=== PATIENT | female | born 1950 | race Caucasian/White ===

== ENCOUNTER → 2016-06-04 | Outpatient (CLI) | payer MEDICARE ==
[~2016-06-04] MED LIST: ALTACE2.5 MG PO
== END ==
LOC: CT 03-12 14:30
DX: Z87.891 Personal history of nicotine dependence (principal)
CPT/HCPCS: G0297

== ENCOUNTER 2020-08-21 22:27 | Emergency (ER) | payer MEDICARE, OTHER ==
[~2020-08-21 22:27] MED LIST changes: +ALBUTEROL1.25 MG/3 INH; +ALLERGY RELIEF25 M1 PO; +AMIODARONE HCL200 MG PO; +AMLODIPINE BESYL5 MG PO; +ASPIRIN CHEWABL81 MG PO; +BREO ELLIPTA 11 EACH INH; +COMBIVENT RESPIM4 GM INH; +CYCLOBENZAPRINE10 MG PO; +EFFEXOR XR75 MG PO; +ELIQUIS 5 MG TAB5 MG PO; +FERROUS SULFAT325 MG PO; +FUROSEMIDE20 MG PO; +GLUCOPHAGE 500500 MG PO; +IMDUR ER TAB 3030 MG PO; +INCRUSE ELLI62.5 MCG INH; +IPRAT-ALBUT 0.5-3 ML INH; +LASIX40 MG PO; +LIPITOR40 MG PO; +LISINOPRIL5 MG PO; +LOPRESSOR 25 MG25 MG PO; +LOPRESSOR 50 MG50 MG PO; +MEDROL4 MG PO; +MELOXICAM7.5 MG PO; +NORVASC 5 MG TAB5 MG PO; +NYSTOP60 GM TOP; +PROTONIX40 MG PO; +ROPINIROLE HCL1 MG PO; +SIMVASTATIN20 MG PO; +SYMBICORT 80-10.2 GM INH; +VENLAFAXINE HCL75 MG PO; +VENTOLIN HFA 66.7 GM INH; +VIBRAMYCIN 100100 MG PO; +XANAX0.25 MG PO; +ZOCOR20 MG PO
[2020-08-22 00:25] LABS: RED BLOOD COUNT 2.33 M/UL (4.00-5.10); WHITE BLOOD COUNT 8.6 K/UL (4.5-11.0)
[2020-08-22 00:26] LABS: HEMOGLOBIN 6.9 gm/dl (12.3-15.3)
[2020-08-22 00:45] LABS: BUN/CREATININE RATIO 24 (0-10)
[2020-08-22] MEDS ORDERED: PREDNISONE50 MG PO (06:16)
[2020-08-22] MEDS ORDERED: OMNICEF 300 MG300 MG PO (06:16)
[2020-08-22] MEDS ORDERED: VIBRAMYCIN100 MG PO (06:16)
[2020-09-19] MEDS ORDERED: FUROSEMIDE40 MG PO (07:55)
[2020-09-19] MEDS ORDERED: SYMBICORT 16010.2 GM INH (08:00)
[2020-09-19] MEDS ORDERED: MULTIVITAMIN1 EACH PO (08:02)
[2020-09-19] MEDS ORDERED: B-121000 MCG PO (08:02)
[2020-09-19] MEDS ORDERED: ELDERBERRY PO (08:04)
[2020-09-19] MEDS ORDERED: BENADRYL ALLERG25 MG PO (08:05)
== END 2020-08-22 08:04 | disposition home or self-care (01) ==
LOC: ER1 22:27
PROVIDERS: Emergency Medicine
DX: J44.1 Chronic obstructive pulmonary disease with (acute) exacerbation (principal); D64.9 Anemia, unspecified; Z20.822 Contact with and (suspected) exposure to COVID-19
CPT/HCPCS: 0240U; 36430; 36600; 71045; 80053; 82272; 82550; 82553; 82803; 83735; 83874; 83880; 84484; 85025; 86850; 86900; 86901; 86920; 93005; 96374; 96375; 99285; J0696; J2930; J7050; P9016

== ENCOUNTER → 2020-09-19 | Day surgery (SDC) | payer MEDICARE ==
[~2020-09-19] VITALS: Ht 157.5 cm; Wt 92.5 kg
[~2020-09-19] MED LIST changes: +B-121000 MCG PO; +BENADRYL ALLERG25 MG PO; +ELDERBERRY PO; +FUROSEMIDE40 MG PO; +MULTIVITAMIN1 EACH PO; +OMNICEF 300 MG300 MG PO; +PREDNISONE50 MG PO; +SYMBICORT 16010.2 GM INH; +VIBRAMYCIN100 MG PO
== END | disposition home or self-care (01) ==
LOC: OR 07:12
PROVIDERS: Internal Medicine Gastroenterology
PROC: 0DJD8ZZ Inspection of Lower Intestinal Tract, Via Natural or Artificial Opening Endoscopic (ICD-10-PCS; 2020-09-19)
PROC: 0DB68ZX Excision of Stomach, Via Natural or Artificial Opening Endoscopic, Diagnostic (ICD-10-PCS; principal; 2020-09-19 10:05)
PROC: 0DB78ZX Excision of Stomach, Pylorus, Via Natural or Artificial Opening Endoscopic, Diagnostic (ICD-10-PCS; 2020-09-19 10:05)
DX: K76.6 Portal hypertension (principal); K31.89 Other diseases of stomach and duodenum; K29.50 Unspecified chronic gastritis without bleeding; K57.30 Diverticulosis of large intestine without perforation or abscess without bleeding; K91.30 Postprocedural intestinal obstruction, unspecified as to partial versus complete; K64.1 Second degree hemorrhoids; K21.9 Gastro-esophageal reflux disease without esophagitis; D50.0 Iron deficiency anemia secondary to blood loss (chronic); I11.9 Hypertensive heart disease without heart failure; E11.9 Type 2 diabetes mellitus without complications; E78.00 Pure hypercholesterolemia, unspecified; I48.91 Unspecified atrial fibrillation; I25.2 Old myocardial infarction; J44.9 Chronic obstructive pulmonary disease, unspecified; J96.11 Chronic respiratory failure with hypoxia; E55.9 Vitamin D deficiency, unspecified; E53.8 Deficiency of other specified B group vitamins; I25.10 Atherosclerotic heart disease of native coronary artery without angina pectoris; E66.01 Morbid (severe) obesity due to excess calories; Z68.37 Body mass index [BMI] 37.0-37.9, adult; Z20.822 Contact with and (suspected) exposure to COVID-19; Z88.1 Allergy status to other antibiotic agents; Z88.2 Allergy status to sulfonamides; Z88.5 Allergy status to narcotic agent; Z88.8 Allergy status to other drugs, medicaments and biological substances; Z79.82 Long term (current) use of aspirin; Z79.84 Long term (current) use of oral hypoglycemic drugs; Z79.899 Other long term (current) drug therapy; Z90.49 Acquired absence of other specified parts of digestive tract; Z87.891 Personal history of nicotine dependence; Y83.8 Other surgical procedures as the cause of abnormal reaction of the patient, or of later complication, without mention of misadventure at the time of the procedure
CPT/HCPCS: 82962; J2704; J7040; U0002

== ENCOUNTER 2020-12-12 17:40 | Inpatient (IN) | payer MEDICARE, OTHER ==
[~2020-12-12] VITALS: Ht 157.5 cm; Wt 89.0 kg
[2020-12-12 18:43] LABS: HEMOGLOBIN 9.2 gm/dl (12.3-15.3); RED BLOOD COUNT 3.54 M/UL (4.00-5.10); WHITE BLOOD COUNT 9.3 K/UL (4.5-11.0)
[2020-12-12 19:11] LABS: BUN/CREATININE RATIO 16 (0-10)
[2020-12-14 08:08] LABS: HEMOGLOBIN 8.3 gm/dl (12.3-15.3); RED BLOOD COUNT 3.3 M/UL (4.00-5.10); WHITE BLOOD COUNT 13.5 K/UL (4.5-11.0)
[2020-12-14 09:08] LABS: BUN/CREATININE RATIO 23 (0-10)
[2020-12-14] MEDS ORDERED: CEFUROXIME500 MG PO (10:15)
[2020-12-14] MEDS ORDERED: MEDROL DOSEPAK 24 MG PO (10:15)
== END 2020-12-14 13:10 | disposition home or self-care (01) | DRG 190 ==
LOC: ER1 17:40 → CDU 20:37 → M/S 20:37
PROVIDERS: Emergency Medicine; Internal Medicine; ADMIT Internal Medicine
DX: J44.1 Chronic obstructive pulmonary disease with (acute) exacerbation (principal); J18.9 Pneumonia, unspecified organism; J96.11 Chronic respiratory failure with hypoxia; J98.11 Atelectasis; Z66 Do not resuscitate; Z20.822 Contact with and (suspected) exposure to COVID-19; I25.10 Atherosclerotic heart disease of native coronary artery without angina pectoris; J44.0 Chronic obstructive pulmonary disease with (acute) lower respiratory infection; I11.0 Hypertensive heart disease with heart failure; F32.9 Major depressive disorder, single episode, unspecified; E11.65 Type 2 diabetes mellitus with hyperglycemia; F41.9 Anxiety disorder, unspecified; E66.01 Morbid (severe) obesity due to excess calories; I48.0 Paroxysmal atrial fibrillation; D64.9 Anemia, unspecified; Z79.4 Long term (current) use of insulin; Z79.01 Long term (current) use of anticoagulants; Z95.1 Presence of aortocoronary bypass graft; Z99.81 Dependence on supplemental oxygen; Z86.711 Personal history of pulmonary embolism; Z90.49 Acquired absence of other specified parts of digestive tract; Z90.710 Acquired absence of both cervix and uterus; Z87.891 Personal history of nicotine dependence; Z83.3 Family history of diabetes mellitus; Z68.35 Body mass index [BMI] 35.0-35.9, adult; Z87.59 Personal history of other complications of pregnancy, childbirth and the puerperium
CPT/HCPCS: 36415; 36600; 71045; 80048; 80053; 82550; 82553; 82803; 82962; 83036; 83735; 83874; 83880; 84484; 85025; 85027; 86140; 87040; 93005; 94640; 94664; 94667; 94668; 94760; 96374; 96375; 99285; C9113; J0456; J0696; J2920; J2930; J7030; U0002

== ENCOUNTER 2021-04-29 17:17 | Emergency (ER) | payer MEDICARE ==
[~2021-04-29 17:17] MED LIST changes: +CEFUROXIME500 MG PO; +MEDROL DOSEPAK 24 MG PO
[2021-04-29 18:56] LABS: HEMOGLOBIN 8.3 gm/dl (12.3-15.3); RED BLOOD COUNT 3.59 M/UL (4.00-5.10); WHITE BLOOD COUNT 10.2 K/UL (4.5-11.0)
[2021-04-29 19:27] LABS: BUN/CREATININE RATIO 24 (0-10)
[2021-04-29] MEDS ORDERED: IRON325 M1 PO (21:25)
[2021-04-29] MEDS ORDERED: LASIX20 MG PO (21:38)
== END 2021-04-29 21:41 | disposition home or self-care (01) ==
LOC: ER1 17:17
PROVIDERS: Emergency Medicine
DX: D64.9 Anemia, unspecified (principal); J44.9 Chronic obstructive pulmonary disease, unspecified; I11.0 Hypertensive heart disease with heart failure; I50.9 Heart failure, unspecified; Z72.3 Lack of physical exercise; I25.10 Atherosclerotic heart disease of native coronary artery without angina pectoris; E11.9 Type 2 diabetes mellitus without complications; Z95.1 Presence of aortocoronary bypass graft
CPT/HCPCS: 71045; 80053; 82550; 82553; 83874; 83880; 84484; 85025; 85379; 94664; 96374; 99285; J1100

== ENCOUNTER 2021-05-14 12:14 | Inpatient (IN) | payer MEDICARE ==
[~2021-05-14] VITALS: Ht 165.1 cm; Wt 86.2 kg
[~2021-05-14 12:14] MED LIST changes: +IRON325 M1 PO; +LASIX20 MG PO
[2021-05-14 12:54] LABS: HEMOGLOBIN 9.4 gm/dl (12.3-15.3); RED BLOOD COUNT 4.02 M/UL (4.00-5.10)
[2021-05-14 13:29] LABS: BUN/CREATININE RATIO 18 (0-10)
[2021-05-14] MEDS ORDERED: ROPINIROLE HCL0.5 MG PO (15:25)
[2021-05-14] MEDS ORDERED: SIMVASTATIN20 MG PO (15:26)
[2021-05-14] MEDS ORDERED: ECOTRIN81 MG PO (15:30)
[2021-05-14] MEDS ORDERED: THERAGRAN M TAB1 EA PO (15:31)
[2021-05-14] MEDS ORDERED: VITAMIN D210 MCG PO (15:31)
[2021-05-14] MEDS ORDERED: TYLENOL 8 HOUR650 MG PO (15:32)
[2021-05-15 07:32] LABS: HEMOGLOBIN 7.7 gm/dl (12.3-15.3); RED BLOOD COUNT 3.25 M/UL (4.00-5.10); WHITE BLOOD COUNT 12.5 K/UL (4.5-11.0)
--- NOTE | 2021-05-15 13:17 | NUR ---
PT SHOWING SIGNS OF ANXIETY AND RESTLESSNESS. NOTIFIED
[2021-05-15 14:55] LABS: WHITE BLOOD COUNT 27.4 K/UL (4.5-11.0)
[2021-05-16 04:45] LABS: HEMOGLOBIN 8.9 gm/dl (12.3-15.3)
[2021-05-16 04:57] LABS: RED BLOOD COUNT 3.82 M/UL (4.00-5.10); WHITE BLOOD COUNT 17.7 K/UL (4.5-11.0)
[2021-05-17 05:24] LABS: HEMOGLOBIN 7.5 gm/dl (12.3-15.3)
[2021-05-17 05:26] LABS: RED BLOOD COUNT 3.25 M/UL (4.00-5.10); WHITE BLOOD COUNT 9.2 K/UL (4.5-11.0)
[2021-05-17 16:14] LABS: ORGANISM ID Not indicated. (.); SPECIMEN SOURCE Urine (.); STREPTOCOCCUS PNEUMONIAE AG Negative (Negative)
[2021-05-18 05:32] LABS: RED BLOOD COUNT 3.48 M/UL (4.00-5.10); WHITE BLOOD COUNT 8.3 K/UL (4.5-11.0)
[2021-05-19 04:51] LABS: HEMOGLOBIN 7.4 gm/dl (12.3-15.3); RED BLOOD COUNT 3.18 M/UL (4.00-5.10)
[2021-05-19 04:52] LABS: WHITE BLOOD COUNT 12.4 K/UL (4.5-11.0)
[2021-05-19 05:15] LABS: BUN/CREATININE RATIO 43 (0-10)
[2021-05-20 05:51] LABS: RED BLOOD COUNT 2.8 M/UL (4.00-5.10); WHITE BLOOD COUNT 16.6 K/UL (4.5-11.0)
[2021-05-20 05:52] LABS: HEMOGLOBIN 6.6 gm/dl (12.3-15.3)
[2021-05-20 06:08] LABS: BUN/CREATININE RATIO 45 (0-10)
[2021-05-20 06:53] LABS: HEMOGLOBIN 6.2 gm/dl (12.3-15.3)
[2021-05-20 12:46] LABS: HEMOGLOBIN 8.1 gm/dl (12.3-15.3)
[2021-05-21 04:26] LABS: HEMOGLOBIN 8.2 gm/dl (12.3-15.3); WHITE BLOOD COUNT 16.4 K/UL (4.5-11.0)
[2021-05-21 04:27] LABS: RED BLOOD COUNT 3.43 M/UL (4.00-5.10)
[2021-05-22 05:12] LABS: HEMOGLOBIN 7.1 gm/dl (12.3-15.3); WHITE BLOOD COUNT 13.8 K/UL (4.5-11.0)
[2021-05-22 05:13] LABS: RED BLOOD COUNT 2.97 M/UL (4.00-5.10)
[2021-05-22 19:02] LABS: HEMOGLOBIN 7.7 gm/dl (12.3-15.3)
[2021-05-23 07:32] LABS: BUN/CREATININE RATIO 45 (0-10)
[2021-05-23 07:36] LABS: HEMOGLOBIN 7.1 gm/dl (12.3-15.3)
[2021-05-23 08:25] LABS: HEMOGLOBIN 6.9 gm/dl (12.3-15.3); RED BLOOD COUNT 2.88 M/UL (4.00-5.10); WHITE BLOOD COUNT 11.4 K/UL (4.5-11.0)
[2021-05-24 05:28] LABS: WHITE BLOOD COUNT 13.9 K/UL (4.5-11.0)
[2021-05-24 05:30] LABS: RED BLOOD COUNT 4.24 M/UL (4.00-5.10)
[2021-05-24 05:31] LABS: HEMOGLOBIN 10.4 gm/dl (12.3-15.3)
[2021-05-24 05:59] LABS: BUN/CREATININE RATIO 35 (0-10)
[2021-05-25 02:18] LABS: HEMOGLOBIN 9.5 gm/dl (12.3-15.3); RED BLOOD COUNT 3.88 M/UL (4.00-5.10)
[2021-05-25 02:22] LABS: BUN/CREATININE RATIO 31 (0-10)
[2021-05-25 02:24] LABS: WHITE BLOOD COUNT 10.2 K/UL (4.5-11.0)
--- NOTE | 2021-05-25 15:22 | NUR ---
PATIENT LEFT FLOOR PER RADIOLOGY STAFF FOR MRI. O2 AT 10 LITERS PER O2 TANK.
--- NOTE | 2021-05-25 16:22 | NUR ---
PATIENT RETURNS FROM MRI PER RADIOLOGY STAFF. TOLERATED WELL.
[2021-05-26 03:20] LABS: RED BLOOD COUNT 3.6 M/UL (4.00-5.10); WHITE BLOOD COUNT 12.7 K/UL (4.5-11.0)
[2021-05-27 02:29] LABS: RED BLOOD COUNT 3.63 M/UL (4.00-5.10)
[2021-05-27 02:32] LABS: WHITE BLOOD COUNT 17.3 K/UL (4.5-11.0)
[2021-05-27 02:49] LABS: BUN/CREATININE RATIO 30 (0-10)
--- NOTE | 2021-05-27 04:51 | NUR ---
ATTEMPTED TO CALL [facility] PER PT REQUEST.
[2021-05-28 03:14] LABS: HEMOGLOBIN 7.9 gm/dl (12.3-15.3)
[2021-05-28 03:15] LABS: RED BLOOD COUNT 3.2 M/UL (4.00-5.10); WHITE BLOOD COUNT 10.4 K/UL (4.5-11.0)
[2021-05-28 03:41] LABS: BUN/CREATININE RATIO 32 (0-10)
[2021-05-29 04:40] LABS: HEMOGLOBIN 7.7 gm/dl (12.3-15.3); RED BLOOD COUNT 3.1 M/UL (4.00-5.10)
[2021-05-29 04:51] LABS: BUN/CREATININE RATIO 33 (0-10)
[2021-05-30 04:58] LABS: HEMOGLOBIN 7.8 gm/dl (12.3-15.3); RED BLOOD COUNT 3.12 M/UL (4.00-5.10)
[2021-05-30 04:59] LABS: WHITE BLOOD COUNT 6.9 K/UL (4.5-11.0)
[2021-05-30 11:25] LABS: BUN/CREATININE RATIO 30 (0-10)
[2021-05-31 05:08] LABS: HEMOGLOBIN 8.4 gm/dl (12.3-15.3); RED BLOOD COUNT 3.32 M/UL (4.00-5.10); WHITE BLOOD COUNT 7.9 K/UL (4.5-11.0)
[2021-05-31 05:32] LABS: BUN/CREATININE RATIO 32 (0-10)
[2021-06-01 05:04] LABS: HEMOGLOBIN 7.6 gm/dl (12.3-15.3); RED BLOOD COUNT 2.99 M/UL (4.00-5.10); WHITE BLOOD COUNT 8.7 K/UL (4.5-11.0)
[2021-06-01 05:27] LABS: BUN/CREATININE RATIO 29 (0-10)
[2021-06-01] MEDS ORDERED: SENNA LAX8.6 MG PO (10:07)
[2021-06-01] MEDS ORDERED: CARDIZEM 60MG T60 MG PO (10:07)
[2021-06-01] MEDS ORDERED: LISINOPRIL10 MG PO (10:07)
[2021-06-01] MEDS ORDERED: CLOPIDOGREL75 MG PO (10:07)
[2021-06-01] MEDS ORDERED: IPRAT-ALBUT 0.5-3 ML INH (10:07)
[2021-06-01] MEDS ORDERED: LEVOFLOXACIN250 MG PO (10:07)
[2021-06-01] MEDS ORDERED: HUMALOG 10100 UNITS/ SC (10:07)
[2021-06-01] MEDS ORDERED: XANAX0.25 MG PO (10:07)
[2021-06-01] MEDS ORDERED: ACETAZOLAMIDE250 MG PO (10:07)
== END 2021-06-01 18:30 | DRG 208 ==
LOC: ER1 12:14 → CCU 13:55 → CDU 13:55 → PROG CARE 13:55 → CCU 19:40 → PROG CARE 05-24 18:03 → CCU 05-28 10:02
PROVIDERS: Emergency Medicine; Internal Medicine; Internal Medicine Cardiovascular Disease; Internal Medicine Critical Care Medicine; Physician Assistant; ADMIT Internal Medicine
PROC: 5A1935Z Respiratory Ventilation, Less than 24 Consecutive Hours (ICD-10-PCS; principal; 2021-05-14)
PROC: 0BH17EZ Insertion of Endotracheal Airway into Trachea, Via Natural or Artificial Opening (ICD-10-PCS; 2021-05-14)
PROC: 5A09357 Assistance with Respiratory Ventilation, Less than 24 Consecutive Hours, Continuous Positive Airway Pressure (ICD-10-PCS; 2021-05-15)
PROC: 5A0935A Assistance with Respiratory Ventilation, Less than 24 Consecutive Hours, High Flow/Velocity Cannula (ICD-10-PCS; 2021-05-16)
PROC: 5A09357 Assistance with Respiratory Ventilation, Less than 24 Consecutive Hours, Continuous Positive Airway Pressure (ICD-10-PCS; 2021-05-16)
PROC: 5A0935A Assistance with Respiratory Ventilation, Less than 24 Consecutive Hours, High Flow/Velocity Cannula (ICD-10-PCS; 2021-05-17)
PROC: 5A09357 Assistance with Respiratory Ventilation, Less than 24 Consecutive Hours, Continuous Positive Airway Pressure (ICD-10-PCS; 2021-05-17)
PROC: B24BZZZ Ultrasonography of Heart with Aorta (ICD-10-PCS; 2021-05-18)
PROC: 5A09357 Assistance with Respiratory Ventilation, Less than 24 Consecutive Hours, Continuous Positive Airway Pressure (ICD-10-PCS; 2021-05-18)
PROC: 5A1935Z Respiratory Ventilation, Less than 24 Consecutive Hours (ICD-10-PCS; 2021-05-18)
PROC: 5A09457 Assistance with Respiratory Ventilation, 24-96 Consecutive Hours, Continuous Positive Airway Pressure (ICD-10-PCS; 2021-05-18)
PROC: 5A0935A Assistance with Respiratory Ventilation, Less than 24 Consecutive Hours, High Flow/Velocity Cannula (ICD-10-PCS; 2021-05-20)
PROC: 5A09357 Assistance with Respiratory Ventilation, Less than 24 Consecutive Hours, Continuous Positive Airway Pressure (ICD-10-PCS; 2021-05-20)
PROC: 30233N1 Transfusion of Nonautologous Red Blood Cells into Peripheral Vein, Percutaneous Approach (ICD-10-PCS; 2021-05-20)
PROC: 5A0935A Assistance with Respiratory Ventilation, Less than 24 Consecutive Hours, High Flow/Velocity Cannula (ICD-10-PCS; 2021-05-21)
PROC: 5A09357 Assistance with Respiratory Ventilation, Less than 24 Consecutive Hours, Continuous Positive Airway Pressure (ICD-10-PCS; 2021-05-22)
PROC: 5A09357 Assistance with Respiratory Ventilation, Less than 24 Consecutive Hours, Continuous Positive Airway Pressure (ICD-10-PCS; 2021-05-22)
PROC: 5A1935Z Respiratory Ventilation, Less than 24 Consecutive Hours (ICD-10-PCS; 2021-05-23)
PROC: 5A0935A Assistance with Respiratory Ventilation, Less than 24 Consecutive Hours, High Flow/Velocity Cannula (ICD-10-PCS; 2021-05-23)
PROC: 5A09357 Assistance with Respiratory Ventilation, Less than 24 Consecutive Hours, Continuous Positive Airway Pressure (ICD-10-PCS; 2021-05-23)
PROC: 5A0945A Assistance with Respiratory Ventilation, 24-96 Consecutive Hours, High Flow/Velocity Cannula (ICD-10-PCS; 2021-05-24)
PROC: 5A09357 Assistance with Respiratory Ventilation, Less than 24 Consecutive Hours, Continuous Positive Airway Pressure (ICD-10-PCS; 2021-05-27)
PROC: 5A0935A Assistance with Respiratory Ventilation, Less than 24 Consecutive Hours, High Flow/Velocity Cannula (ICD-10-PCS; 2021-05-27)
PROC: 5A09457 Assistance with Respiratory Ventilation, 24-96 Consecutive Hours, Continuous Positive Airway Pressure (ICD-10-PCS; 2021-05-27)
PROC: 5A0935A Assistance with Respiratory Ventilation, Less than 24 Consecutive Hours, High Flow/Velocity Cannula (ICD-10-PCS; 2021-05-29)
PROC: 5A09357 Assistance with Respiratory Ventilation, Less than 24 Consecutive Hours, Continuous Positive Airway Pressure (ICD-10-PCS; 2021-05-29)
PROC: 5A0935A Assistance with Respiratory Ventilation, Less than 24 Consecutive Hours, High Flow/Velocity Cannula (ICD-10-PCS; 2021-05-30)
PROC: 5A09357 Assistance with Respiratory Ventilation, Less than 24 Consecutive Hours, Continuous Positive Airway Pressure (ICD-10-PCS; 2021-05-30)
PROC: 5A09357 Assistance with Respiratory Ventilation, Less than 24 Consecutive Hours, Continuous Positive Airway Pressure (ICD-10-PCS; 2021-05-31)
PROC: 5A0935A Assistance with Respiratory Ventilation, Less than 24 Consecutive Hours, High Flow/Velocity Cannula (ICD-10-PCS; 2021-05-31)
PROC: 5A09357 Assistance with Respiratory Ventilation, Less than 24 Consecutive Hours, Continuous Positive Airway Pressure (ICD-10-PCS; 2021-06-01)
PROC: 5A0935A Assistance with Respiratory Ventilation, Less than 24 Consecutive Hours, High Flow/Velocity Cannula (ICD-10-PCS; 2021-06-01)
DX: J96.21 Acute and chronic respiratory failure with hypoxia (principal); J15.9 Unspecified bacterial pneumonia; J69.0 Pneumonitis due to inhalation of food and vomit; I50.33 Acute on chronic diastolic (congestive) heart failure; E66.2 Morbid (severe) obesity with alveolar hypoventilation; E87.3 Alkalosis; J44.1 Chronic obstructive pulmonary disease with (acute) exacerbation; R65.10 Systemic inflammatory response syndrome (SIRS) of non-infectious origin without acute organ dysfunction; G93.49 Other encephalopathy; Z20.822 Contact with and (suspected) exposure to COVID-19; H81.13 Benign paroxysmal vertigo, bilateral; I25.10 Atherosclerotic heart disease of native coronary artery without angina pectoris; R27.0 Ataxia, unspecified; E11.65 Type 2 diabetes mellitus with hyperglycemia; I34.0 Nonrheumatic mitral (valve) insufficiency; I44.0 Atrioventricular block, first degree; D64.9 Anemia, unspecified; H70.93 Unspecified mastoiditis, bilateral; E78.5 Hyperlipidemia, unspecified; F41.9 Anxiety disorder, unspecified; I48.0 Paroxysmal atrial fibrillation; J96.22 Acute and chronic respiratory failure with hypercapnia; F32.A Depression, unspecified; K21.9 Gastro-esophageal reflux disease without esophagitis; J44.9 Chronic obstructive pulmonary disease, unspecified; I11.0 Hypertensive heart disease with heart failure; G89.29 Other chronic pain; R53.81 Other malaise; E11.42 Type 2 diabetes mellitus with diabetic polyneuropathy; Z95.1 Presence of aortocoronary bypass graft; Z79.01 Long term (current) use of anticoagulants; Z79.82 Long term (current) use of aspirin; Z86.711 Personal history of pulmonary embolism; Z90.710 Acquired absence of both cervix and uterus; Z90.49 Acquired absence of other specified parts of digestive tract; Z88.5 Allergy status to narcotic agent; Z88.2 Allergy status to sulfonamides; Z88.8 Allergy status to other drugs, medicaments and biological substances; Z83.3 Family history of diabetes mellitus; Z99.81 Dependence on supplemental oxygen; Z79.4 Long term (current) use of insulin; Z68.31 Body mass index [BMI] 31.0-31.9, adult
CPT/HCPCS: ECHO; 0240U; 31500; 36415; 36430; 36600; 70450; 70551; 71045; 80048; 80053; 80202; 80307; 81001; 82550; 82553; 82803; 82962; 83540; 83550; 83605; 83735; 83880; 84439; 84443; 84484; 85014; 85018; 85025; 85027; 85610; 85730; 86850; 86900; 86901; 86920; 87040; 87081; 87086; 87278; 87899; 93005; 93306; 94002; 94003; 94640; 94660; 94760; 97110; 97110-GP-CQ; 97116-GP-CQ; 97161; 97164; 97165; 97530; 97530-GP-CQ; 99285; C9113; J0692; J0696; J1120; J1160; J1205; J1644; J1650; J1940; J2185; J2543; J2704; J2920; J2930; J3370; J7030; J7050; J7070; P9016; U0002